=== PATIENT | male | born 1980 ===

== ENCOUNTER 2019-09-01 19:43 | Emergency (ER) | payer OTHER ==
[~2019-09-01] VITALS: Ht 175.3 cm; Wt 70.5 kg
[2019-09-01 20:08] VITALS: TEMP 97.5
[2019-09-01 20:36] VITALS: BP 127/92
[2019-09-01 21:42] VITALS: PULSE 70
== END 2019-09-01 21:43 | disposition home or self-care (01) ==
LOC: COL.ER 19:43
DX: S20.212A Contusion of left front wall of thorax, initial encounter (principal); S30.811A Abrasion of abdominal wall, initial encounter; S30.810A Abrasion of lower back and pelvis, initial encounter; W10.9XXA Fall (on) (from) unspecified stairs and steps, initial encounter